=== PATIENT | female | born 2005 | race Caucasian/White ===

== ENCOUNTER 2024-05-10 06:02 | Emergency (ER) | payer OTHER, SELFPAY ==
[2024-05-10] VITALS (7 sets, daily range): BP systolic 104–127; BP diastolic 74–86; BMI 22.7
[2024-05-10] MEDS: NSS 1000 IV (06:39)
[2024-05-10] MEDS: ZOFRAN 4 MG IV (06:40)
[2024-05-10] MEDS: TORADOL 15 MG IV (06:41)
[2024-05-10] MEDS: PROTONIX IV 40 MG IV (06:43)
[2024-05-10 06:47] LABS: % Basophils 0.4 % (0-2); % Eosinophils 0.7 % (0-6); % Immature Granulocytes 0.4 % (0-0.5); % Lymphocytes 27.5 % (20.5-51.1); % Monocytes 7.7 % (1.7-9.3); % Neutrophils 63.3 % (42.2-75.2); Absolute Basophils 0.1 10^3/uL (0-0.2); Absolute Eosinophils 0.1 10^3/uL (0-0.7); Absolute Immature Granulocytes 0.1 10^3/uL (0-0.05); Absolute Lymphocytes 3.2 10^3/uL (1.2-3.4); Absolute Monocytes 0.9 10^3/uL (0.1-0.6); Absolute Neutrophils 7.3 10^3/uL (1.4-6.5); Hematocrit 46.8 % (37.0-47.0); Hemoglobin 15.8 g/dL (12.0-16.0); Mean Corp Hgb Conc. 33.8 g/dL (33.0-37.0); Mean Corpuscular Hgb 29.2 pg (27.0-31.0); Mean Corpuscular Volume 86.5 fL (81.0-99.0); Mean Platelet Volume 9.7 fL (7.4-10.4); Nucleated Red Blood Cells % 0 %; Platelet Count 243 10^3/uL (130-400); Red Blood Cell Count 5.41 10^6/uL (4.20-5.40); Red Cell Dist. Width 12.3 % (11.5-14.5); White Blood Cell Count 11.5 10^3/uL (4.8-10.8)
--- NOTE | 2024-05-10 07:06 | ED.GENMED ---
History of Present Illness
General
Chief Complaint: Abdominal Pain
Source: patient
Exam Limitations: none
Time Seen by Provider: 05/10/24 06:14
Nursing documentation reviewed up to this point in time: agreed with
History of Present Illness
History of Present Illness:
Patient presents to ED secondary to sudden onset of upper abdominal pain associated nausea and vomiting, which woke the patient from sleep this morning. Patient states that he had no discomfort when he went to sleep last night. Denies recent
illness. Denies previous history of similar symptoms. Abdominal pain described as sharp, nonradiating, without any alleviating or exacerbating factors. Denies family history of gallstones or kidney stones. Denies trauma. Denies recent change in
medications or diet.
Review of Systems
Review of Systems
Allergies reviewed?: Yes
All Other Systems: ROS reviewed and negative except as documented in HPI and ROS
Constitutional: Reports no symptoms
EENT: Reports no symptoms
Respiratory: Reports no symptoms
Cardiac: Reports no symptoms
ABD/GI: Reports abdominal pain, nausea and vomiting; Denies diarrhea
Musculoskeletal: Reports no symptoms
Skin: Reports no symptoms
Neurological: Reports no symptoms
Phy Exam
Physical Exam
Physical Exam:
Physical Exam
General: mild painful distress, not acutely ill. afebrile
Head: nc/at. eomi
Neck: supple. normal range of motion
Heart: s1/s2 regular rate and rhythm, no murmur. equal radial pulses.
Lungs: no acute respiratory distress. clear bilaterally
Abdomen: normal bowel sounds. mild epigastric/RUQ tenderness to palpation.
Neuro: alert and oriented. no focal neurological deficits
Skin: no rash
Psychiatric: well kept. interactive and cooperative
Extremities: no edema. no calf tenderness.
Course
Orders/Labs/Results
Orders:
Orders
05/10/24 06:21
Ketorolac [Toradol] 15 mg IV NOW STA
Ondansetron Injectable [Zofran] 4 mg IV NOW STA
05/10/24 06:22
0.9% Sodium Chloride 1000 ml [Nss] 1,000 ml IV BOLUS
Pantoprazole [Protonix IV] 40 mg IV NOW STA
05/10/24 06:39
Complete Blood Count/With Diff Urgent
Comprehensive Metabolic Panel Urgent
Lipase Urgent
05/10/24 07:19
HYDROmorphone [Dilaudid] 0.5 mg IV NOW STA
US Abdomen Complete/Upper Urgent
Comment:
Reason For Exam: RUQ pain
05/10/24 08:45
CT Abd/pel Without Iv Or Oral Urgent
Comment:
Reason For Exam: right flank pain
05/10/24 10:02
US Pelvis W Transvag Combined Urgent
Comment:
Reason For Exam: right sided abdominal pain w abnormal CT
Abnormal Lab Results
05/10/24
06:39
WBC 11.5 H 10^3/uL
(4.8-10.8)
RBC 5.41 H 10^6/uL
(4.20-5.40)
Abs Immat Gran (auto) 0.1 H 10^3/uL
(0-0.05)
Absolute Neuts (auto) 7.3 H 10^3/uL
(1.4-6.5)
Absolute Monos (auto) 0.9 H 10^3/uL
(0.1-0.6)
Potassium 3.2 L mmol/L
(3.5-5.1)
Carbon Dioxide 19 L mmol/L
(22-30)
Glucose 124 H mg/dl
(70-99)
Total Bilirubin 2.2 H mg/dl
(0.2-1.3)
05/10/24 06:39
05/10/24 06:39
Vital Signs
Initial and Last Documented VS:
Initial Vital Signs
Temp Pulse Resp BP Pulse Ox
97.9 F 126 22 114/74 100
05/10/24 06:03 05/10/24 06:03 05/10/24 06:03 05/10/24 06:03 05/10/24 06:03
Last Documented Vital Signs
Temp Pulse Resp BP Pulse Ox
98.9 F 96 22 104/76 98
05/10/24 08:49 05/10/24 13:52 05/10/24 06:03 05/10/24 13:52 05/10/24 13:52
MDM/Problems Addressed
MDM/Problems Addressed:
Abdominal ultrasound ordered secondary to continual right flank / upper abdominal pain. Abdominal ultrasound shows right-sided hydronephrosis. As such, CT abdomen pelvis without contrast ordered to evaluate for potential renal colic as etiology
behind his presenting symptoms.
CT abdomen pelvis reveals abnormal right ovary findings. Pelvic ultrasound recommended.
Pelvic ultrasound reveals likely right ovarian hemorrhagic cyst, with normal blood flow. With these findings, and patient remaining afebrile and hemodynamically stable, with improved symptoms after treatment, patient will be discharged home with
recommendation to follow-up with PCP/[employer] physician for reevaluation.
*Critical Care Note
Total Time (30-74mins, 75-104mins- exclusive of procedures): Not Applicable
ED Attending Note
-
Portions of this chart may have been created with voice recognition software.� Occasional wrong word or��sound alike� substitutions may have occurred due to the inherent limitations of voice recognition software.
Discharge Plan
Departure
Patient Disposition: Home (Routine Discharge)
Date of Disposition: 05/10/24
Time of Disposition: 12:51
Patient with high blood pressure during this ER visit?: Yes
Condition: Good
Discharge Problem:
HEMORRHAGIC OVARIAN CYST
Instructions: Ovarian cyst - ED discharge instructions
Prescriptions:
No Action
fluoxetine 20 mg Tablet
30 mg PO DAILY
testosterone
topical DAILY
Patient Comments:
unknown mg
Referrals:
Sterling Vazquez, [Family Provider] -
Activity Restrictions/Additional Instructions:
As discussed, please follow-up with your primary care physician and/or [employer] physician for further evaluation and treatment. Please return to ED with worsening symptoms, i.e. fever/worsening pain/vomiting.
Interventions
Interventions:
*Risk Screen - Suicide Last Done: 05/10/24 06:03
*General Assessment Last Done: 05/10/24 06:30
*Neglect/Abuse Screening Last Done: 05/10/24 06:03
ED- Fall Risk Assessment Last Done: 05/10/24 12:34
*ED COVID-19 Vaccine History Last Done: 05/10/24 06:30
*Nursing Disposition Last Done: 05/10/24 13:52
FP-Frhsjr-Cbmlqozaqf Assessment Last Done: 05/10/24 06:50
Discharge Date and Time
Discharge Date/Time: 05/10/24 13:53
Print Language: URDU
[2024-05-10 07:17] LABS: ALT (SGPT) 16 U/L (0-50); AST (SGOT) 22 U/L (17-59); Alkaline Phosphatase 93 U/L (38-126); Blood Urea Nitrogen 12 mg/dl (9-20); Carbon Dioxide 19 mmol/L (22-30); Chloride 104 mmol/L (98-107); Estimated Creatinine Clearance 110 ml/min; Glucose 124 mg/dl (70-99); Lipase 73 U/L (23-300); Potassium 3.2 mmol/L (3.5-5.1); Sodium 141 mmol/L (135-145); Total Bilirubin 2.2 mg/dl (0.2-1.3); eGFR > 60.00
[2024-05-10] MEDS: DILAUDID 0.5 MG IV (07:25)
== END 2024-05-10 13:53 | disposition home or self-care (01) ==
LOC: EMR 06:02
PROVIDERS: EMERGENCY PHYSICIAN Emergency Medicine; FAMILY PHYSICIAN Student in an Organized Health Care Education/Training Program
DX: N83.201 Unspecified ovarian cyst, right side (principal); N13.30 Unspecified hydronephrosis
CPT/HCPCS: 96374; 96375; 96361; 99284; 74176; 76700; 76830; 76856; 80053; 83690; 85025

== ENCOUNTER 2024-05-13 04:13 | Emergency (ER) | payer OTHER, SELFPAY ==
[2024-05-13 04:15] VITALS: BP 147/84
--- NOTE | 2024-05-13 04:36 | ED.GENMED ---
History of Present Illness
<JESSIKA Richards - Last Filed: 05/13/24 05:07>
General
Chief Complaint: Abdominal Pain
Source: patient
Time Seen by Provider: 05/13/24 04:22
Nursing documentation reviewed up to this point in time: agreed with
History of Present Illness
History of Present Illness:
Patient presents to the ED with right lower quadrant abdominal pain. Pt reports that the pain has been present for the past few days. Pt was seen in ED on 05/10 with similar abdominal symptoms and pelvic US results found right ovarian hemorrhagic
cyst. Pt states that when he went home, the pain was tolerable and not as severe. Pt states that tonight the pain become severe and sharp again. Pt states that the pain radiates around from the RLQ of the abdomen to the right hip. Pt denies anything
making the pain better or worse. Pt also reports having nausea that is constant with the pain. Pt denies fever, chills, vomiting, chest pain, shortness of breath, light-headed, dizziness. Pt states that he had an appointment to follow up with PCP
later today following being discharged in 05/10.
Review of Systems
<JESSIKA Richards - Last Filed: 05/13/24 05:07>
Review of Systems
Allergies reviewed?: Yes
Constitutional: Reports no symptoms
Respiratory: Reports no symptoms
Cardiac: Reports no symptoms
ABD/GI: Reports abdominal pain and nausea
: Reports no symptoms
Phy Exam
<JESSIKA Richards - Last Filed: 05/13/24 05:07>
General Physical Exam
General Presentation: mild distress
General age: appears stated age
General Skin: warm
General Habitus: normal
General Mental: alert
General Hydration: appears well hydrated
Cardiovascular Exam
Cardiovascular Exam: regular rate/rhythm
Pulmonary Exam
Pulmonary Exam: lungs clear
Gastrointestinal Exam
Gastrointestinal Exam: soft and non distended
Palpation: right lower quadrant: Severe tenderness
Course
<JESSIKA Richards - Last Filed: 05/13/24 05:07>
Orders/Labs/Results
Orders:
Orders
05/13/24 04:51
Test Result ONCE
05/13/24 04:52
Complete Blood Count/With Diff Urgent
Comprehensive Metabolic Panel Urgent
HCG, Serum Qualitative Screen Urgent
Comment: Notify provider if positive test present
Lipase Urgent
05/13/24 04:57
US Pelvis Only (non-obstetric) Urgent
Comment:
Reason For Exam: r pelvic pain
05/13/24 05:05
Ondansetron Injectable [Zofran] 4 mg .ROUTE .STK-MED ONE
05/13/24 05:06
Ketorolac [Toradol] 15 mg .ROUTE .STK-MED ONE
05/13/24 05:07
Ketorolac [Toradol] 15 mg IV NOW STA
Ondansetron Injectable [Zofran] 4 mg IV NOW STA
05/13/24 05:10
Ondansetron Injectable [Zofran] 4 mg IV NOW STA
05/13/24 05:15
0.9% Sodium Chloride 1000 ml [Nss] 1,000 ml IV BOLUS
Abnormal Lab Results
05/13/24
04:52
RBC 5.41 H 10^6/uL
(4.20-5.40)
Absolute Monos (auto) 0.7 H 10^3/uL
(0.1-0.6)
Carbon Dioxide 21 L mmol/L
(22-30)
Total Bilirubin 2.2 H mg/dl
(0.2-1.3)
05/13/24 04:52
05/13/24 04:52
Vital Signs
Initial and Last Documented VS:
Initial Vital Signs
Pulse Resp BP Pulse Ox
137 20 147/84 100
05/13/24 04:15 05/13/24 04:15 05/13/24 04:15 05/13/24 04:15
Last Documented Vital Signs
Temp Pulse Resp BP Pulse Ox
98.5 F 96 15 116/81 99
05/13/24 05:20 05/13/24 06:51 05/13/24 06:51 05/13/24 06:51 05/13/24 06:51
<Jefferson Hernandez, DO - Last Filed: 05/13/24 07:04>
Orders/Labs/Results
Orders:
Orders
05/13/24 04:51
Test Result ONCE
05/13/24 04:52
Complete Blood Count/With Diff Urgent
Comprehensive Metabolic Panel Urgent
HCG, Serum Qualitative Screen Urgent
Comment: Notify provider if positive test present
Lipase Urgent
05/13/24 04:57
US Pelvis Only (non-obstetric) Urgent
Comment:
Reason For Exam: r pelvic pain
05/13/24 05:05
Ondansetron Injectable [Zofran] 4 mg .ROUTE .STK-MED ONE
05/13/24 05:06
Ketorolac [Toradol] 15 mg .ROUTE .STK-MED ONE
05/13/24 05:07
Ketorolac [Toradol] 15 mg IV NOW STA
Ondansetron Injectable [Zofran] 4 mg IV NOW STA
05/13/24 05:10
Ondansetron Injectable [Zofran] 4 mg IV NOW STA
05/13/24 05:15
0.9% Sodium Chloride 1000 ml [Nss] 1,000 ml IV BOLUS
Abnormal Lab Results
05/13/24
04:52
RBC 5.41 H 10^6/uL
(4.20-5.40)
Absolute Monos (auto) 0.7 H 10^3/uL
(0.1-0.6)
Carbon Dioxide 21 L mmol/L
(22-30)
Total Bilirubin 2.2 H mg/dl
(0.2-1.3)
05/13/24 04:52
05/13/24 04:52
Vital Signs
Initial and Last Documented VS:
Initial Vital Signs
Pulse Resp BP Pulse Ox
137 20 147/84 100
05/13/24 04:15 05/13/24 04:15 05/13/24 04:15 05/13/24 04:15
Last Documented Vital Signs
Temp Pulse Resp BP Pulse Ox
98.5 F 96 15 116/81 99
05/13/24 05:20 05/13/24 06:51 05/13/24 06:51 05/13/24 06:51 05/13/24 06:51
<JESSIKA Richards - Last Filed: 05/13/24 05:07>
MDM/Problems Addressed
Differential Diagnosis Includes:
Right ovarian cyst, appendicitis
<JESSIKA Richards - Last Filed: 05/13/24 05:07>
*Critical Care Note
Total Time (30-74mins, 75-104mins- exclusive of procedures): Not Applicable
<Jefferson Hernandez DO - Last Filed: 05/13/24 07:04>
Update Note
Update Note:
Spoke with TABLE ATTENDANT. She recommended NSAIDs. If pain persists to follow-up in the office or return to the ER.
ED Attending Note
<JESSIKA Richards - Last Filed: 05/13/24 05:07>
-
Portions of this chart may have been created with voice recognition software.� Occasional wrong word or��sound alike� substitutions may have occurred due to the inherent limitations of voice recognition software.
<Jefferson Hernandez DO - Last Filed: 05/13/24 07:04>
ED Attending Note
Patient seen and examined by attending physician: Yes
I performed the substantive portion of visit, reviewed & personally made and approve the management plan that is documented in note by myself or LOAN.: Yes
ED Attending Note:
This is a pleasant male who transitioned from female presents with right lower pelvic pain consistent with pain experienced during previous ovarian cysts.
Discharge Plan
Departure
Patient Disposition: Home (Routine Discharge)
Date of Disposition: 05/13/24
Time of Disposition: 07:02
Patient with high blood pressure during this ER visit?: Yes
Condition: Good
Discharge Problem:
Ovarian cyst
Instructions: Ovarian Cyst (DC), Abdominal Pain
Prescriptions:
New
diclofenac sodium 75 mg tablet,delayed release (DR/EC)
75 mg PO BID Qty: 10 0RF
No Action
fluoxetine 20 mg Tablet
30 mg PO DAILY
testosterone
topical DAILY
Patient Comments:
unknown mg
Referrals:
Sterling Vazquez DO [Family Provider] -
Nicole Chun DO [Active] -
Interventions
Interventions:
*Risk Screen - Suicide Last Done: 05/13/24 04:43
*General Assessment Last Done: 05/13/24 04:43
*Neglect/Abuse Screening Last Done: 05/13/24 04:43
ED- Fall Risk Assessment Last Done: 05/13/24 04:43
*ED COVID-19 Vaccine History Last Done: 05/13/24 04:43
ZG-[id number]-Xwggrzdmqc Assessment Last Done: 05/13/24 06:52
Discharge Date and Time
Print Language: CROATIAN
[2024-05-13 04:43] VITALS: BMI 23.1
[2024-05-13 05:06] LABS: % Basophils 0.4 % (0-2); % Eosinophils 1.3 % (0-6); % Immature Granulocytes 0.2 % (0-0.5); % Lymphocytes 35.6 % (20.5-51.1); % Monocytes 7.5 % (1.7-9.3); Absolute Eosinophils 0.1 10^3/uL (0-0.7); Absolute Lymphocytes 3.3 10^3/uL (1.2-3.4); Absolute Monocytes 0.7 10^3/uL (0.1-0.6); Hematocrit 46.4 % (37.0-47.0); Hemoglobin 15.8 g/dL (12.0-16.0); Mean Corp Hgb Conc. 34.1 g/dL (33.0-37.0); Mean Corpuscular Hgb 29.2 pg (27.0-31.0); Mean Corpuscular Volume 85.8 fL (81.0-99.0); Mean Platelet Volume 9.9 fL (7.4-10.4); Nucleated Red Blood Cells % 0 %; Platelet Count 238 10^3/uL (130-400); Red Blood Cell Count 5.41 10^6/uL (4.20-5.40); Red Cell Dist. Width 12.4 % (11.5-14.5); White Blood Cell Count 9.2 10^3/uL (4.8-10.8)
[2024-05-13] MEDS: TORADOL 15 MG IV (05:07)
[2024-05-13] MEDS: ZOFRAN 4 MG IV (05:10)
[2024-05-13] MEDS: NSS 1000 IV (05:16)
[2024-05-13 05:33] LABS: HCG, Serum Qualitative Screen Negative
[2024-05-13 05:45] LABS: ALT (SGPT) 12 U/L (0-35); AST (SGOT) 20 U/L (14-36); Albumin 4.7 g/dl (3.5-5.0); Alkaline Phosphatase 87 U/L (38-126); Blood Urea Nitrogen 9 mg/dl (7-17); Calcium 9.8 mg/dl (8.4-10.2); Carbon Dioxide 21 mmol/L (22-30); Chloride 105 mmol/L (98-107); Estimated Creatinine Clearance 97 ml/min; Glucose 86 mg/dl (70-99); Lipase 87 U/L (23-300); Potassium 3.6 mmol/L (3.5-5.1); Sodium 139 mmol/L (135-145); Total Bilirubin 2.2 mg/dl (0.2-1.3); Total Protein 7.7 g/dl (6.3-8.2); eGFR > 60.00
[2024-05-13 06:51] VITALS: BP 116/81
== END 2024-05-13 07:26 | disposition home or self-care (01) ==
LOC: EMR 04:13
PROVIDERS: EMERGENCY PHYSICIAN Student in an Organized Health Care Education/Training Program; FAMILY PHYSICIAN Student in an Organized Health Care Education/Training Program
DX: N83.201 Unspecified ovarian cyst, right side (principal); R03.0 Elevated blood-pressure reading, without diagnosis of hypertension
CPT/HCPCS: 99284; 96374; 96375; 96361 ×2; 76856; 80053; 83690; 84703; 85025

== ENCOUNTER → 2024-10-01 14:09 | Outpatient (REF) | payer OTHER, SELFPAY | LOC: MRI 14:09 | PROVIDERS: ATTENDING PHYSICIAN Physician Assistant Medical; FAMILY PHYSICIAN Family Medicine | DX: R10.2 Pelvic and perineal pain (principal); N83.209 Unspecified ovarian cyst, unspecified side | CPT/HCPCS: 72197; A9575 ==